=== PATIENT | male | born 1960 | race Caucasian/White ===

== ENCOUNTER 2020-02-04 18:44 | Emergency (ER) | payer OTHER ==
[2020-02-04] MEDS ORDERED: Cephalexin 500 MG Cap ONE (20:00)
--- NOTE | 2020-02-04 20:10 | EDM.PDOC ---
ED HPI GENERAL MEDICAL PROBLEM - General Chief Complaint: Upper Extremity Injury/Pain Stated Complaint: cut hand Time Seen by Provider: 02/04/20 18:50 Source of Information: Reports: Patient - History of Present Illness INITIAL COMMENTS - FREE TEXT/NARRATIVE: patient was skinning a deer, sustaining 2 lacerations to the dorsal side of his left hand. Unable to extend thumb, tendon damage, cap refill and sensation intact. Location: Reports: Upper Extremity, Left Improves with: Reports: None Worsens with: Reports: None Associated Symptoms: Reports: No Other Symptoms Review of Systems - Review of Systems Review Of Systems: See Below Constitutional: Reports: No Symptoms Eyes: Reports: No Symptoms Ears: Reports: No Symptoms Nose: Reports: No Symptoms Mouth/Throat: Reports: No Symptoms Respiratory: Reports: No Symptoms Cardiovascular: Reports: No Symptoms GI/Abdominal: Reports: No Symptoms Genitourinary: Reports: No Symptoms Musculoskeletal: Reports: No Symptoms Skin: Reports: Wound Neurological: Reports: No Symptoms Psychiatric: Reports: No Symptoms ED EXAM, GENERAL - Physical Exam Exam: See Below Exam Limited By: No Limitations General Appearance: Alert, No Apparent Distress Ears: Normal External Exam Nose: Normal Inspection Head: Atraumatic Respiratory/Chest: No Respiratory Distress Cardiovascular: Normal Peripheral Pulses Peripheral Pulses: 3+: Radial (L), Radial (R) Back Exam: Full Range of Motion Extremities: Normal Range of Motion Neurological: Alert, Oriented Psychiatric: Normal Affect, Normal Mood Skin Exam: Warm, Dry, Wound/Incision Lymphatic: No Adenopathy ED TRAUMA EXTREMITY PROCEDURES - Laceration/Wound Repair Left Dorsal Hand Lac/Wound Length In cm: 4 Appearance: Linear Distal NVT: Neuro & Vascular Intact Anesthetic Type: Local Local Anesthesia - Lidocaine (Xylocaine): 1% Plain Local Anesthetic Volume: 2cc Skin Prep: Saline, Sterile Drape Exploration/Debridement/Repair: Wound Explored, No Foreign Material Found Closed With: Sutures Suture Size: 5-0 # of Sutures: 10 Suture Type: Prolene, Interrupted Drain Placement: No Tetanus Status Addressed: Yes Complications: No Progress/Comments: 4cm laceration across 2nd, 3rd, 4th MCP joints, no tendon damage 1.5 cm laceration to thumb MCP joint with tendon damage, EPB Left Dorsal Digit - 1st (Thumb) Lac/Wound Length In cm: 1.5 Appearance: Linear Distal NVT: Neuro & Vascular Intact Anesthetic Type: Local Local Anesthesia - Lidocaine (Xylocaine): 1% Plain Local Anesthetic Volume: 1cc Skin Prep: Saline Exploration/Debridement/Repair: Wound Explored, No Foreign Material Found Closed With: Sutures Suture Size: 5-0 # of Sutures: 5 Suture Type: Prolene, Interrupted Drain Placement: No Tetanus Status Addressed: Yes Progress/Comments: patient is unable to extend thumb, sensation and circulation intact Departure - Departure Time of Disposition: 20:40 Disposition: Admitted As Inpatient 64 Condition: Good Clinical Impression: Laceration of thumb, left, with tendon involvement Qualifiers: Encounter type: initial encounter Qualified Code(s): S61.012A - Laceration without foreign body of left thumb without damage to nail, initial encounter Laceration of left hand Qualifiers: Encounter type: initial encounter Foreign body presence: without foreign body Qualified Code(s): S61.412A - Laceration without foreign body of left hand, initial encounter - Discharge Information *PRESCRIPTION DRUG MONITORING PROGRAM REVIEWED*: Not Applicable *COPY OF PRESCRIPTION DRUG MONITORING REPORT IN PATIENT MONCHO: Not Applicable Instructions: Wound Infection, [id number], Sutured Wound Care, [id number] Forms: ED Department Discharge Additional Instructions: Follow up on Thursday at the [facility] clinic [phone], Dr. Villalobos will see you between 0800-1100AM. Please call the clinic on your way so they can gauge when to expect you. Keep area clean and dry. Start the keflex tonight. Return to ED for any increased or new concerning symptoms. Wear the splint until your follow up appointment. - Assessment/Plan Plan: Spoke with Dr. Wilfredo Mayes in [place], he will see the patient in clinic for tendon repair on Thursday , the patient was instructed to show up at the ortho clinic between [id number] and he will fit the patient in. The patient laxmi call enroute to clinic, [phone]. He will be started on Keflex 500mg BID x 7 days. Patient verbalized understanding of DC and follow up instructions. Thumb splint placed, cap refill <2 seconds.
== END 2020-02-04 20:27 | disposition home or self-care (01) ==
LOC: LB.ED 18:44
DX: S61.012A Laceration without foreign body of left thumb without damage to nail, initial encounter (principal); S61.412A Laceration without foreign body of left hand, initial encounter; W26.9XXA Contact with unspecified sharp object(s), initial encounter
CPT/HCPCS: 12002; 12041; 99282-25; 99283; A9270-GY